=== PATIENT | male | born 1990 | race Caucasian/White ===

== ENCOUNTER 2017-07-17 16:25 | Emergency (ER) | payer MEDICAID ==
[~2017-07-17] VITALS: Ht 175.3 cm; Wt 123.9 kg
[~2017-07-17 16:25] MED LIST: NO HOME MEDS
[2017-07-17] MEDS ORDERED: DEXT10TA7 PO (17:06)
[2017-07-17 17:11] LABS: HEMATOCRIT 46.3 % (39.2-51.8); HEMOGLOBIN 15.6 g/dL (13.7-18.0); WHITE BLOOD COUNT 8.1 x10^3/uL (3.4-10)
[2017-07-17 17:25] LABS: BLOOD UREA NITROGEN 13 mg/dL (7-18)
[2017-07-17 17:30] LABS: IS PT STATUS REG ER OR PRE ER? YES
[2017-07-17] MEDS ORDERED: ALBUTEROL SULFATE 2.5 MG/3 ML NPPB ONE (17:30)
[2017-07-17] MEDS ORDERED: ALBUTEROL SULFATE 2.5 MG/3 ML ONE (17:44)
[2017-07-17 18:17] VITALS: BP 127/77
== END 2017-07-17 18:20 | disposition home or self-care (01) ==
LOC: ED 17:15
DX: J98.01 Acute bronchospasm (principal)
CPT/HCPCS: 36415; 71020; 80048; 82040; 84484; 85025; 93005; 94640; 99285; J7613

== ENCOUNTER 2017-07-24 10:12 | Emergency (ER) | payer MEDICAID, OTHER ==
[~2017-07-24] VITALS: Ht 175.3 cm; Wt 125.0 kg
[~2017-07-24 10:12] MED LIST changes: +DEXT10TA7 PO
[2017-07-24 10:17] VITALS: BP 120/80
== END 2017-07-24 11:14 | disposition home or self-care (01) ==
LOC: ED 10:50
DX: M25.532 Pain in left wrist (principal); J45.909 Unspecified asthma, uncomplicated
CPT/HCPCS: 99281

== ENCOUNTER 2017-11-10 18:52 | Emergency (ER) | payer MEDICAID, OTHER ==
[~2017-11-10] VITALS: Ht 175.3 cm; Wt 120.0 kg
[2017-11-10 19:01] VITALS: BP 128/84
[2017-11-10] MEDS ORDERED: HYDROcodone/APAP 5/325 TABLET ONE (20:28)
[2017-11-10] MEDS ORDERED: HYDROcodone/APAP 5/325 TABLET PO ONE (20:30)
== END 2017-11-10 20:53 | disposition home or self-care (01) ==
LOC: ED 20:47
DX: S60.221A Contusion of right hand, initial encounter (principal); J45.909 Unspecified asthma, uncomplicated; X58.XXXA Exposure to other specified factors, initial encounter; Y93.89 Activity, other specified; Y92.009 Unspecified place in unspecified non-institutional (private) residence as the place of occurrence of the external cause; Y99.9 Unspecified external cause status
CPT/HCPCS: 99284

== ENCOUNTER 2018-01-25 21:59 | Emergency (ER) | payer MEDICAID ==
[~2018-01-25] VITALS: Ht 175.3 cm; Wt 125.8 kg
[2018-01-25 22:12] VITALS: BP 101/67
[2018-01-25] MEDS ORDERED: KETOROLAC 30 MG/1 ML ONE (22:55)
[2018-01-25] MEDS ORDERED: KETOROLAC 30 MG/1 ML IM ONE (23:00)
[2018-01-25] MEDS ORDERED: ONDANSETRON ODT 4 MG ONE (23:13)
[2018-01-25] MEDS ORDERED: ONDANSETRON ODT 4 MG PO ONE (23:30)
== END 2018-01-26 00:15 | disposition home or self-care (01) ==
LOC: ED 23:20
DX: S39.012A Strain of muscle, fascia and tendon of lower back, initial encounter (principal); J06.9 Acute upper respiratory infection, unspecified; J45.909 Unspecified asthma, uncomplicated; X58.XXXA Exposure to other specified factors, initial encounter; Y93.89 Activity, other specified; Y92.89 Other specified places as the place of occurrence of the external cause; Y99.8 Other external cause status
CPT/HCPCS: 72110; 96372; 99284; J1885; Q0162

== ENCOUNTER 2018-05-01 14:44 | Emergency (ER) | payer MEDICAID ==
[~2018-05-01] VITALS: Ht 175.3 cm; Wt 129.0 kg
[2018-05-01] MEDS ORDERED: LURA20TA PO (15:17)
[2018-05-01 15:37] LABS: ALANINE AMINOTRANSFERASE 102 U/L (12-78); ALBUMIN 3.6 g/dL (3.4-5.0); ANION GAP 6 mmol/L (5-15); BASOPHILS # (AUTO) 0.07 x10^3/uL (0-0.1); BASOPHILS % (AUTO) 1 % (0-1); CALCIUM 9.2 mg/dL (8.5-10.1); CHLORIDE 107 mmol/L (98-107); CREATININE 0.96 mg/dL (0.7-1.3); EOSINOPHILS # (AUTO) 0.26 x10^3/uL (0-0.4); EOSINOPHILS % (AUTO) 3 % (1-7); LYMPHOCYTES # (AUTO) 2.13 x10^3/uL (1-3.4); LYMPHOCYTES % (AUTO) 27 % (22-44); MD NO; MEAN CORPUSCULAR HEMOGLOBIN 28.8 pg (27.5-34.5); MEAN CORPUSCULAR HGB CONC 33.4 g/dL (33.2-36.2); MEAN CORPUSCULAR VOLUME 86.1 fL (81-97); MEAN PLATELET VOLUME 8.4 fL (7.4-10.4); MONOCYTES # (AUTO) 0.71 x10^3/uL (0.2-0.8); MONOCYTES % (AUTO) 9 % (2-9); NEUTROPHILS # (AUTO) 4.61 x10^3/uL (1.8-6.8); NEUTROPHILS % (AUTO) 59 % (42-75); PLATELET COUNT 236 x10^3/uL (130-400); RED BLOOD COUNT 5.26 x10^6/uL (4.38-5.82); RED CELL DISTRIBUTION WIDTH 13.3 % (9.4-14.8)
[2018-05-01 15:39] LABS: ALKALINE PHOSPHATASE 125 U/L (45-117); BILIRUBIN,TOTAL 0.5 mg/dL (0.2-1.0); TOTAL PROTEIN 7.2 g/dL (6.4-8.2)
[2018-05-01] MEDS ORDERED: KETOROLAC 30 MG/1 ML IM ONE (16:30)
[2018-05-01 16:34] LABS: CULTURE INDICATED? YES; MICROSCOPIC INDICATED
[2018-05-01] MEDS ORDERED: KETOROLAC 30 MG/1 ML ONE (16:35)
[2018-05-01 16:43] VITALS: BP 121/68
== END 2018-05-01 17:25 | disposition home or self-care (01) ==
LOC: ED 16:38
DX: N20.0 Calculus of kidney (principal); N50.812 Left testicular pain; N50.811 Right testicular pain; J45.909 Unspecified asthma, uncomplicated; Z87.442 Personal history of urinary calculi
CPT/HCPCS: 36415; 74176; 76870; 80053; 81001; 85025; 87086; 96372; 99285; J1885

== ENCOUNTER → 2018-05-02 | Outpatient (CLI) | payer MEDICAID ==
[~2018-05-02] MED LIST changes: +LURA20TA PO
== END | disposition home or self-care (01) ==
LOC: RAD 09:31
PROVIDERS: ATTEND Physician Assistant
DX: N20.1 Calculus of ureter (principal)
CPT/HCPCS: 74018

== ENCOUNTER 2018-05-24 23:25 | Inpatient (IN) | payer MEDICAID ==
[~2018-05-24] VITALS: Ht 175.3 cm; Wt 129.3 kg
[2018-05-25] MEDS ORDERED: ONDANSETRON 2MG/ML, 2ML IVPush ONE
[2018-05-25] MEDS ORDERED: PHENAZOPYRIDINE 200 MG TABLET PO ONE
[2018-05-25] MEDS ORDERED: SODIUM CHLORIDE FLUSH 10ML SYR IVF ONE
[2018-05-25 00:03] LABS: BASOPHILS # (AUTO) 0.06 x10^3/uL (0-0.1); BASOPHILS % (AUTO) 1 % (0-1); EOSINOPHILS # (AUTO) 0.32 x10^3/uL (0-0.4); EOSINOPHILS % (AUTO) 3 % (1-7); LYMPHOCYTES # (AUTO) 1.91 x10^3/uL (1-3.4); LYMPHOCYTES % (AUTO) 16 % (22-44); MD NO; MEAN CORPUSCULAR HEMOGLOBIN 29.2 pg (27.5-34.5); MEAN CORPUSCULAR HGB CONC 34.2 g/dL (33.2-36.2); MEAN CORPUSCULAR VOLUME 85.3 fL (81-97); MONOCYTES # (AUTO) 0.86 x10^3/uL (0.2-0.8); MONOCYTES % (AUTO) 7 % (2-9); NEUTROPHILS # (AUTO) 8.57 x10^3/uL (1.8-6.8); NEUTROPHILS % (AUTO) 73 % (42-75); PLATELET COUNT 237 x10^3/uL (130-400); RED BLOOD COUNT 5.28 x10^6/uL (4.38-5.82); RED CELL DISTRIBUTION WIDTH 13.4 % (9.4-14.8)
[2018-05-25 00:13] LABS: ALBUMIN 3.8 g/dL (3.4-5.0); ANION GAP 5 mmol/L (5-15); CALCIUM 9.3 mg/dL (8.5-10.1); CHLORIDE 107 mmol/L (98-107)
[2018-05-25] MEDS ORDERED: ONDANSETRON ODT 4 MG ONE (00:45)
[2018-05-25] MEDS ORDERED: MORPHINE SULFATE 4 MG/ML, 1ML ONE ×2 (00:45→04:18)
[2018-05-25] MEDS ORDERED: PHENAZOPYRIDINE 200 MG TABLET ONE (00:45)
[2018-05-25] MEDS: MORPHINE SULFATE 4 MG/ML, 1ML IVPush PRN ×2 (00:59→04:19)
[2018-05-25 01:51] LABS: CULTURE INDICATED? YES; MICROSCOPIC INDICATED
[2018-05-25] MEDS ORDERED: CEFTRIAXONE 1,000 MG in SODIUM CHLORIDE 0.9% 50 ML IV ONE (03:30)
[2018-05-25] MEDS ORDERED: SODIUM CHLORIDE 0.9% 1,000 ML IV ONE (03:50)
[2018-05-25] MEDS ORDERED: PROMETHAZINE 25 MG/ML, 1ML IM PRN (04:00)
[2018-05-25] MEDS ORDERED: HYDROmorphone 1 MG/ML, 1ML IVPush PRN ×2 (04:00→16:00)
[2018-05-25 07:44] VITALS: BP 155/91
[2018-05-25 08:09] VITALS: BP 125/84
[2018-05-25] MEDS ORDERED: FENTANYL PF 100 MCG/2ML ONE ×2 (13:04→14:56)
[2018-05-25] MEDS ORDERED: ONDANSETRON 2MG/ML, 2ML IV PRN ×2 (13:30→16:00)
[2018-05-25] MEDS ORDERED: PROMETHAZINE 25 MG/ML, 1ML IV PRN ×2 (13:30)
[2018-05-25] MEDS ORDERED: ONDANSETRON ODT 8 MG PO PRN (13:30)
[2018-05-25] MEDS ORDERED: FENTANYL PF 100 MCG/2ML IV PRN (13:30)
[2018-05-25] MEDS ORDERED: MORPHINE SULFATE 4 MG/ML, 1ML IVPush PRN (13:30)
[2018-05-25] MEDS ORDERED: OXYcodone 5 MG/5 ML ORAL.SOL UDC PO PRN (13:30)
[2018-05-25] MEDS ORDERED: LORazepam 2 MG/ML, 1ML IVPush PRN (13:30)
[2018-05-25] MEDS ORDERED: ACETAMINOPHEN 325 MG TABLET PO PRN ×2 (13:30→16:00)
[2018-05-25] MEDS ORDERED: MEPERIDINE/PF 25MG/0.5ML IVPush PRN (13:30)
[2018-05-25] MEDS ORDERED: MIDAZOLAM 1 MG/ML, 2ML ONE (13:41)
[2018-05-25] MEDS ORDERED: ONDANSETRON 2MG/ML, 2ML ONE ×2 (13:58→15:11)
[2018-05-25] MEDS ORDERED: KETOROLAC 30 MG/1 ML ONE (13:58)
[2018-05-25] MEDS ORDERED: DEXAMETHASONE 4 MG/ML, 1ML ONE (13:58)
[2018-05-25] MEDS ORDERED: GLYCOPYRROLATE 0.2MG/1ML, 5ML ONE (13:58)
[2018-05-25] MEDS ORDERED: NEOSTIGMINE 1 MG/ML, 10ML ONE (13:58)
[2018-05-25] MEDS ORDERED: ROCURONIUM 10MG/ML,5ML ONE (13:58)
[2018-05-25] MEDS ORDERED: PROPOFOL 10 MG/ML, 20ML ONE (13:58)
[2018-05-25] MEDS ORDERED: SUCCINYLCHOLINE 20 MG/ML, 10ML ONE (13:58)
[2018-05-25] MEDS ORDERED: CEFAZOLIN 1,000 MG ONE ×2 (13:58)
[2018-05-25] MEDS ORDERED: OXYcodone 5 MG/5 ML ORAL.SOL UDC ONE (14:56)
[2018-05-25 15:45] VITALS: BP 114/74
[2018-05-25] MEDS ORDERED: LACTATED RINGERS 1,000 ML IV SCH (16:00)
[2018-05-25] MEDS ORDERED: HYDROcodone/APAP 5/325 TABLET PO PRN (16:00)
[2018-05-25] MEDS ORDERED: ONDANSETRON ODT 4 MG PO PRN (18:00)
[2018-05-25] MEDS ORDERED: HYDR-3237 PO (19:07)
[2018-05-25] MEDS ORDERED: TAMS0.4C2 PO (19:08)
[2018-05-25 19:42] VITALS: BP 145/89
== END 2018-05-25 20:00 | disposition home or self-care (01) | DRG 660 ==
LOC: ED 23:59 → EDIP 05-25 03:50 → 4NOR 05-25 04:24
PROVIDERS: ADMIT Urology; ATTEND Urology
PROC: 0TC68ZZ Extirpation of Matter from Right Ureter, Via Natural or Artificial Opening Endoscopic (ICD-10-PCS; 2018-05-25)
PROC: 0TC18ZZ Extirpation of Matter from Left Kidney, Via Natural or Artificial Opening Endoscopic (ICD-10-PCS; principal; 2018-05-25 13:45)
DX: N13.6 Pyonephrosis (principal); Z68.41 Body mass index [BMI] 40.0-44.9, adult; J45.909 Unspecified asthma, uncomplicated; N21.0 Calculus in bladder; Z87.442 Personal history of urinary calculi; F31.9 Bipolar disorder, unspecified; E66.01 Morbid (severe) obesity due to excess calories
CPT/HCPCS: 36415; 74018; 76000; 99285; J3490; 74176; 76770; 80048; 81001; 82040; 82360; 85025; 87086; 88300; 96374; 96376; G0378; J0690; J0696; J1100; J1885; J2250; J2405; J2704; J2710; J3010; Q0162; J0330; J7030; J7120

== ENCOUNTER 2021-04-29 13:10 | Emergency (ER) | payer MEDICAID, OTHER ==
[~2021-04-29] VITALS: Ht 175.3 cm; Wt 130.8 kg
[~2021-04-29 13:10] MED LIST changes: +HYDR-3237 PO; +TAMS0.4C2 PO
--- NOTE | 2021-04-29 13:42 | NUR ---
PT TO ROOM FROM LOBBY, ASSUME CARE AT THIS TIME
--- NOTE | 2021-04-29 13:59 | NUR ---
STATES NEGATIVE COVID TEST X2. STATES STILL HAS COUGH. STATES DOES HAVE LOSS OF TASTE. STATES IS VACCINATED. STATES H/A WELL. DIARRHEA ALSO. PT IN BED WITH CONT SPO2 BP Q 30 MIN
[2021-04-29] MEDS ORDERED: SODIUM CHLORIDE 0.9% 1,000ML IVBOLUS ONE (14:00)
[2021-04-29 14:17] LABS: MEAN CORPUSCULAR HEMOGLOBIN 28.6 pg (27.5-34.5); MEAN CORPUSCULAR HGB CONC 34.1 g/dL (33.2-36.2); MEAN PLATELET VOLUME 9.1 fL (7.4-10.4); PLATELET COUNT 156 x10^3/uL (130-400); RED BLOOD COUNT 5.71 x10^6/uL (4.38-5.82); RED CELL DISTRIBUTION WIDTH 13.4 % (9.4-14.8)
[2021-04-29 14:24] LABS: ALANINE AMINOTRANSFERASE 70 U/L (12-78); ALBUMIN 3.1 g/dL (3.4-5.0); ANION GAP 6 mmol/L (5-15); CALCIUM 9.2 mg/dL (8.5-10.1); CHLORIDE 101 mmol/L (98-107); CREATININE 0.86 mg/dL (0.7-1.3)
[2021-04-29 14:28] LABS: ALKALINE PHOSPHATASE 81 U/L (45-117); TOTAL PROTEIN 7.2 g/dL (6.4-8.2)
[2021-04-29 15:59] LABS: BAND#(MANUAL) 0.59 x10^3/uL; BANDS%(MANUAL) 8 % (0-7); BASOS#(MANUAL) 0.07 x10^3/uL (0-0.1); BASOS% (MANUAL) 1 % (0-1); EOS#(MANUAL) 0.07 x10^3/uL (0.0-0.4); EOS% (MANUAL) 1 % (1-7); LYMPH#(MANUAL) 2.22 x10^3/uL (1-3.4); LYMPHS% (MANUAL) 30 % (22-44); MONOS#(MANUAL) 0.81 x10^3/uL (0.3-2.7); MONOS% (MANUAL) 11 % (2-9); REACTIVE LYMPHS # (MANUAL) 0.81 x10^3/uL (0-0); REACTIVE LYMPHS % (MANUAL) 11 % (0-0); SEG#(MANUAL) 2.81 x10^3/uL (1.8-6.8); SEGS% (MANUAL) 38 % (42-75)
[2021-04-29 16:01] LABS: <PLATELET ESTIMATE> ADEQUATE; <PLT MORPHOLOGY> NORMAL PLT MORPH; <RBC MORPHOLOGY> NORMAL
[2021-04-29 16:07] VITALS: BP 124/74
== END 2021-04-29 16:08 | disposition home or self-care (01) ==
LOC: ED 16:02
DX: J06.9 Acute upper respiratory infection, unspecified (principal); R06.00 Dyspnea, unspecified; R00.0 Tachycardia, unspecified; J45.909 Unspecified asthma, uncomplicated
CPT/HCPCS: 36415; 71045; 80053; 83880; 85025; 93005; 96360; 99285; J7030